=== PATIENT | female | born 1995 | race African-American/Black ===

== ENCOUNTER 2017-09-19 06:46 | Inpatient (IN) | payer OTHER ==
[~2017-09-19] VITALS: Ht 170.2 cm; Wt 95.3 kg
[2017-09-19] MEDS ORDERED: DEXT 5%/LR + PITOCIN 20UNITS/L 1,000 ML IV SCH (07:11)
[2017-09-19] MEDS ORDERED: METHYLERGONOVINE MALEATE 0.2 MG/ML IM PRN (07:15)
[2017-09-19] MEDS ORDERED: CARBOPROST TROMETHAMINE 250 MCG/ML AMPUL IM PRN (07:15)
[2017-09-19] MEDS ORDERED: LIDOCAINE HCL 1% 20ML VIAL (Pyxis) INJ INFIL SCH (07:15)
[2017-09-19 07:40] LABS: CLARITY URINE TURBID (CLEAR); COLOR URINE YELLOW (YELLOW); KETONES URINE NEGATIVE (NEGATIVE); LEUKOCYTE ESTERASE URINE TRACE (NEGATIVE); NITRITE URINE NEGATIVE (NEGATIVE); OCCULT BLOOD URINE 1+ (NEGATIVE); PH URINE 6.5 (4.5-8.0); PROTEIN URINE 2+ (NEGATIVE); SPECIFIC GRAVITY URINE 1.015 (1.005-1.030)
[2017-09-19 07:43] LABS: BASOPHILS % 0.4 % (0.0-2.0); EOSINOPHILS % 1.1 % (0.0-5.0); HEMATOCRIT. 32.5 % (36.0-48.0); HEMOGLOBIN. 10.8 g/dL (12.0-16.0); MEAN CORPUSCULAR HEMOGLOBIN 29.3 pg (28.0-32.0); MEAN CORPUSCULAR VOLUME 88.4 fL (81.0-99.0); MEAN PLATELET VOLUME 8.4 fl (7.4-10.4); MONOCYTES % 7.1 % (2.0-8.0); NEUTROPHILS % 65.4 % (40.0-76.0); PLATELET 237 x1000/uL (130-400); RED BLOOD CELL COUNT 3.68 mill/uL (4.2-5.4); RED CELL DISTRIBUTION WIDTH 13.7 % (11.6-14.6)
[2017-09-19 07:47] LABS: PARTIAL THROMBOPLASTIN TIME 30.9 sec (23.4-31.0)
[2017-09-19 08:07] LABS: *AMPHETAMINES SCREEN URINE NEGATIVE (NEGATIVE); *BARBITURATES SCREEN URINE NEGATIVE (NEGATIVE); *BENZODIAZEPINES SCREEN URINE NEGATIVE (NEGATIVE); *COCAINE SCREEN URINE NEGATIVE (NEGATIVE); CANNABINOID URINE SCREEN NEGATIVE (NEGATIVE); METHADONE URINE SCREEN NEGATIVE (NEGATIVE); OPIATES URINE SCREEN NEGATIVE (NEGATIVE); PHENCYCLIDINE URINE SCREEN NEGATIVE (NEGATIVE)
[2017-09-19] MEDS: LACTATED RINGERS 1,000 ML IV SCH ×2 (09:02→18:35)
[2017-09-19 11:45] LABS: HEPATITIS B SURFACE ANTIGEN NEGATIVE; RUBELLA IGG 7.4 IU/mL (4.99-10)
[2017-09-19] MEDS ORDERED: BUTORPHANOL TARTRATE 2 MG/ML VIAL IV PRN (11:45)
[2017-09-19] MEDS ORDERED: BUPIVACAINE HCL/PF 0.25% (2.5MG/ML) 10ML ONE (15:26)
[2017-09-19] MEDS ORDERED: BUPIVACAINE HCL/NS/PF EPIDURAL 100 ML EP ONE ×2 (15:26→22:19)
[2017-09-19] MEDS ORDERED: FENTANYL CITRATE/PF 50MCG/ML 5ML VIAL ONE (15:26)
[2017-09-19] MEDS ORDERED: BUPIVACAINE HCL/NS/PF EPIDURAL 100 ML EP SCH (16:00)
[2017-09-19] MEDS ORDERED: LIDOCAINE HCL/PF 2% 20 MG/ML 10ML VIAL ONE ×2 (22:04→23:14)
[2017-09-19] MEDS ORDERED: FENTANYL CITRATE/PF 50MCG/ML 2ML VIAL ONE (22:19)
[2017-09-20] MEDS ORDERED: FENTANYL CITRATE/PF 50MCG/ML 2ML VIAL IV NR (00:30)
[2017-09-20] MEDS ORDERED: NALOXONE HCL 0.4 MG/ML 1ML VIAL IM PRN (02:30)
[2017-09-20] MEDS ORDERED: DEXT 5%/LR + PITOCIN 20UNITS/L 1,000 ML IV SCH (03:28)
[2017-09-20] MEDS ORDERED: RHO(D) IMMUNE GLOBULIN 300 MCG/SYR IM PRN (03:30)
[2017-09-20] MEDS ORDERED: IBUPROFEN 400MG TABLET PO PRN (03:30)
[2017-09-20] MEDS ORDERED: BENZOCAINE/LANOLIN/ALOE VERA SPRAY TOP PRN (03:30)
[2017-09-20] MEDS ORDERED: ACETAMINOPHEN WITH CODEINE 300/30MG TABLET PO PRN (03:30)
[2017-09-20 05:40] VITALS: BP 110/55
[2017-09-20 06:10] VITALS: BP 111/57
[2017-09-20 08:00] VITALS: BP 104/55
[2017-09-20] MEDS: IBUPROFEN 800MG TABLET PO PRN (10:58)
[2017-09-20 16:00] VITALS: BP 118/56
[2017-09-21] VITALS: BP 122/59
[2017-09-21 06:30] LABS: BASOPHILS % 0.5 % (0.0-2.0); EOSINOPHILS % 1.3 % (0.0-5.0); HEMOGLOBIN. 7.1 g/dL (12.0-16.0); LYMPHOCYTES % 22.2 % (20.0-50.0); MEAN CORPUSCULAR VOLUME 89.1 fL (81.0-99.0); MEAN PLATELET VOLUME 8.6 fl (7.4-10.4); PLATELET 178 x1000/uL (130-400); RED BLOOD CELL COUNT 2.36 mill/uL (4.2-5.4); RED CELL DISTRIBUTION WIDTH 13.9 % (11.6-14.6)
[2017-09-21] MEDS: IBUPROFEN 800MG TABLET PO PRN (07:35)
[2017-09-21 07:39] VITALS: BP 113/60
[2017-09-21] MEDS: PRENATAL VIT/FE FUMARATE/FA TABLET PO SCH (08:56)
[2017-09-21] MEDS: FERROUS SULFATE 325MG TABLET PO SCH ×3 (08:56→17:04)
[2017-09-21 16:11] VITALS: BP 108/64
[2017-09-22] VITALS: BP 122/63
[2017-09-22 07:46] VITALS: BP 115/66
[2017-09-22] MEDS ORDERED: FERR325T6 PO (07:54)
[2017-09-22] MEDS: PRENATAL VIT/FE FUMARATE/FA TABLET PO SCH (08:15)
[2017-09-22] MEDS: FERROUS SULFATE 325MG TABLET PO SCH (08:15)
[2017-09-22] MEDS: IBUPROFEN 800MG TABLET PO PRN (08:15)
[2017-09-22] MEDS ORDERED: INFLUENZA VIRUS VACCINE 0.5ML SYR IM ONE (10:45)
== END 2017-09-22 11:45 | disposition home or self-care (01) | DRG 775 ==
LOC: OBSVTOIN 06:46 → L&D 06:46 → 7EST PP/OB 09-20 05:34
PROVIDERS: ADMIT Obstetrics & Gynecology; ATTEND Obstetrics & Gynecology
PROC: 0W8NXZZ Division of Female Perineum, External Approach (ICD-10-PCS; 2017-09-20)
PROC: 3E0S3BZ Introduction of Anesthetic Agent into Epidural Space, Percutaneous Approach (ICD-10-PCS; 2017-09-20)
PROC: 00HU33Z Insertion of Infusion Device into Spinal Canal, Percutaneous Approach (ICD-10-PCS; 2017-09-20)
PROC: 10D07Z6 Extraction of Products of Conception, Vacuum, Via Natural or Artificial Opening (ICD-10-PCS; principal; 2017-09-20 02:56)
DX: O70.9 Perineal laceration during delivery, unspecified (principal); D64.9 Anemia, unspecified; O99.03 Anemia complicating the puerperium; Z37.0 Single live birth; Z3A.40 40 weeks gestation of pregnancy; Z83.3 Family history of diabetes mellitus
CPT/HCPCS: 36415; 80305; 81001; 85025; 85610; 85730; 86592; 86703; 86762; 86850; 86900; 87340; 90686; J0595; J2310; J2590; J3010; J3490; J7120; A4315